=== PATIENT | male | born 1990 | race Caucasian/White ===

== ENCOUNTER 2018-06-22 21:57 | Emergency (ER) | payer BC ==
[2018-06-22 22:05] VITALS: BP 136/80; PULSE 62; TEMP 97.4; BMI 27.2
--- NOTE | 2018-06-22 22:05 | PDOC ---
History of Present Illness - General Chief Complaint: Syncope/Near Syncope Stated Complaint: SYNCOPE Time Seen by Provider: 06/22/18 22:05 History Source: Patient, EMS Exam Limitations: No Limitations - History of Present Illness Initial Comments: 06/22/18 22:12 28 year old male with PMH asthma BIBA to ED for syncopal episode just [employer]. PT stated he was sitting on the toilet, defecating when he felt lower abdominal pain, then felt lightheaded and passed out. This prompted pt to call EMS. While sitting on the stretcher, pt had another syncopal episode. Pt was given normal saline bolus 1000 cc en route to ED. Pt denied chest pain, shortness of breath, back pain. Pt denied sudden in the family, early heart disease in the family. Pt reported resolution of lightheadedness. EMS stated pts HR was as low as 44, with a rise to 62 with fluid bolus. Allergies: NKDA Past History - Past Medical History Allergies/Adverse Reactions: Allergies Allergy/AdvReac Type Severity Reaction Status Date / Time shrimp Allergy Severe Verified 06/22/18 22:43 Penicillins Allergy Unknown Verified 06/22/18 22:40 Home Medications: Ambulatory Orders Albuterol Sulfate Inhaler - [Ventolin Hfa Inhaler -] 2 inh PO Q6H PRN 06/22/18 Asthma: Yes COPD: No - Suicide/Smoking/Psychosocial Hx Smoking History: Never smoked Have you smoked in the past 12 months: No Hx Alcohol Use: No Drug/Substance Use Hx: No Substance Use Type: None Review of Systems - Review of Systems Able to Perform ROS?: Yes Comments:: 06/22/18 22:14 General: denied fever, chills, generalized weakness. HEENT: denied sore throat, rhinorrhea, ear pain. Heart: admitted to syncope. denied chest pain, palpitations. Respiratory: denied shortness of breath, cough, sputum production, hemoptysis. Abdomen: admitted to abdominal pain. denied nausea, vomiting, diarrhea, constipation, blood in stool. : denied dysuria, increased urinary frequency, hematuria, urinary incontinence , flank pain. Back: denied back pain. Musculoskeletal: denied joint pain, muscle pain, joint swelling. Neurological: denied headache, dizziness, numbness, tingling, weakness. Skin: denied rash, laceration, abrasion. *Physical Exam - Vital Signs Last Vital Signs Temp Pulse Resp BP Pulse Ox 97.4 F L 62 18 136/80 93 L 06/22/18 21:58 06/22/18 21:58 06/22/18 21:58 06/22/18 21:58 06/22/18 21:58 - Physical Exam Comments: 06/22/18 22:15 Constitutional: Well-nourished, Well-developed, appearing stated age. HEENT: head is normocephalic, atraumatic. EOMI. PERRLA. Neck: supple. Full ROM. Heart: regular rhythm. no murmurs, rubs or gallops. Lungs: clear to auscultation bilaterally. no crackles, rhonchi or wheezing. no stridor. Abdomen: soft, nontender. normal bowel sounds. no rebound, guarding, masses. Extremities: peripheral pulses intact. no lower extremity edema. Neurological: CN 2-12 grossly intact. moves all four extremities. Psych: awake, alert, oriented x3. follows commands. answers questions appropriately. ED Treatment Course - LABORATORY CBC & Chemistry Diagram: 06/22/18 22:40 06/22/18 22:40 Medical Decision Making - Medical Decision Making 06/22/18 22:15 28 year old male with above PMH BIBA to ED for syncopal episodes s/p defecating. Initial Vital Signs Temp Pulse Resp BP Pulse Ox 97.4 F L 62 18 136/80 93 L 06/22/18 21:58 06/22/18 21:58 06/22/18 21:58 06/22/18 21:58 06/22/18 21:58 Afebrile. Borderline bradycardia. No tachypnea. Mild hypertension. No hypotension. No hypoxia on room air. Labs ordered: BGM, CBC, CMP Imaging ordered: none Medications ordered: none EKG performed at 2207: rate 61, regular rhythm, normal axis, normal intervals, no delta wave, no prolonged QT, no acute ST changes. 06/22/18 22:56 CBC WBC 9.0 K/mm3 (4.0-10.0) 06/22/18 22:40 RBC 4.88 M/mm3 (4.00-5.60) 06/22/18 22:40 Hgb 14.8 GM/dL (11.7-16.9) 06/22/18 22:40 Hct 43.2 % (35.4-49) 06/22/18 22:40 MCV 88.6 fl (80-96) 06/22/18 22:40 MCH 30.3 pg (25.7-33.7) 06/22/18 22:40 MCHC 34.2 g/dl (32.0-35.9) 06/22/18 22:40 RDW 12.3 % (11.9-15.9) 06/22/18 22:40 Plt Count 143 K/MM3 (134-434) 06/22/18 22:40 MPV 9.4 fl (7.5-11.1) 06/22/18 22:40 Absolute Neuts (auto) 6.0 K/mm3 (1.5-8.0) 06/22/18 22:40 Neutrophils % 66.7 % (42.8-82.8) 06/22/18 22:40 Lymphocytes % 23.2 % (8-40) 06/22/18 22:40 Monocytes % 6.9 % (3.8-10.2) 06/22/18 22:40 Eosinophils % 2.8 % (0-4.5) 06/22/18 22:40 Basophils % 0.4 % (0-2.0) 06/22/18 22:40 Nucleated RBC % 0 % (0-0) 06/22/18 22:40 No leukocytosis. No anemia. 06/22/18 23:20 CMP Sodium 138 mmol/L (136-145) 06/22/18 22:40 Potassium 4.1 mmol/L (3.5-5.1) 06/22/18 22:40 Chloride 108 mmol/L (98-107) H 06/22/18 22:40 Carbon Dioxide 25 mmol/L (21-32) 06/22/18 22:40 Anion Gap 5 MMOL/L (8-16) L 06/22/18 22:40 BUN 20 mg/dL (7-18) H 06/22/18 22:40 Creatinine 0.9 mg/dL (0.55-1.3) 06/22/18 22:40 Est GFR (CKD-EPI)AfAm 135.19 06/22/18 22:40 Est GFR (CKD-EPI)NonAf 116.64 06/22/18 22:40 Random Glucose 102 mg/dL (74-106) 06/22/18 22:40 Calcium 8.5 mg/dL (8.5-10.1) 06/22/18 22:40 Total Bilirubin 0.3 mg/dL (0.2-1) 06/22/18 22:40 AST 19 U/L (15-37) 06/22/18 22:40 ALT 33 U/L (13-61) 06/22/18 22:40 Alkaline Phosphatase 77 U/L (45-117) 06/22/18 22:40 Total Protein 6.6 g/dl (6.4-8.2) 06/22/18 22:40 Albumin 3.8 g/dl (3.4-5.0) 06/22/18 22:40 No electrolyte abnormalities. No PARAG. No transaminitis. Pt informed of results. Pt reported improvement of symptoms. Pt discharged. *DC/Admit/Observation/Transfer Diagnosis at time of Disposition: Syncope - Discharge Dispostion Disposition: HOME Condition at time of disposition: Improved - Referrals - Patient Instructions Printed Discharge Instructions: DI for Syncope in Adults (Fainting) Additional Instructions: You were seen today for passing out (syncope). Likely this was from having a bowel movement (vasovagal syncope). Your lab work was normal. Your EKG was normal. Follow up with your primary care doctor within 2-3 days. Your care is not complete until you follow up. Bring all paperwork given to you to your appointment. Return to the Emergency Department for chest pain, shortness of breath, lightheadedness like you may pass out, passing, out, severe back pain, severe abdominal pain, fever or any other new, worsening or concerning symptoms. - Post Discharge Activity Forms/Work/School Notes: Back to Work
[2018-06-22 22:52] LABS: BASO % 0.4 % (0-2.0); EOS % 2.8 % (0-4.5); HEMATOCRIT 43.2 % (35.4-49); HEMOGLOBIN 14.8 GM/dL (11.7-16.9); LYMPH % 23.2 % (8-40); MCH 30.3 pg (25.7-33.7); MCHC 34.2 g/dl (32.0-35.9); MEAN CELL VOLUME 88.6 fl (80-96); MEAN PLT VOLUME 9.4 fl (7.5-11.1); MONO % 6.9 % (3.8-10.2); NEUT % 66.7 % (42.8-82.8); PLATELET COUNT 143 K/MM3 (134-434); RBC 4.88 M/mm3 (4.00-5.60); RDW 12.3 % (11.9-15.9)
[2018-06-22 23:19] LABS: ALBUMIN 3.8 g/dl (3.4-5.0); BILIRUBIN,TOTAL 0.3 mg/dL (0.2-1); CALCIUM 8.5 mg/dL (8.5-10.1); CREATININE 0.9 mg/dL (0.55-1.3); POTASSIUM 4.1 mmol/L (3.5-5.1); TOT PROT 6.6 g/dl (6.4-8.2)
--- NOTE | 2018-06-23 02:02 | PDOC ---
Documentation entered by Damaris Garcia SCRIBE, acting as scribe for Shahrzad Mccoy MD. Shahrzad Mccoy MD: This documentation has been prepared by the Radha ledesma Xhesika, SCRIBE, under my direction and personally reviewed by me in its entirety. I confirm that the documentation accurately reflects all work, treatment, procedures, and medical decision making performed by me. Attending Attestation - Resident Resident Name: Mony Welsh - ED Attending Attestation I have performed the following: I have examined & evaluated the patient, The case was reviewed & discussed with the resident, I agree w/resident's findings & plan, Exceptions are as noted - HPI HPI: 06/22/18 22:35 28 yo male has seated onthe toilet when he had a fainting episode. Then he called 911 06/22/18 22:35 The patient is a 28 year old male with a significant past medical history of asthma who presents to our ED on BIBA with syncopal episodes. The patient states he was sitting on the toilet when he felt lower abdominal pain, light headed and passed out. Patient states he woke up and called EMS, however, when patient was in the ambulance he had another syncopal episode, his HR was in the 40s and patient was given normal saline bolus 1000 cc by EMS. Patient denies any heart disease in the family. Patient does not have any complaints at this time. The patient denies chest pain, shortness of breath or dizziness. The patient denies fever, chills, nausea, diarrhea or constipation. The patient denies dysuria, frequency, urgency or hematuria. Allergy: NKDA. shrimp. Surgical History: None reported Social History: None reported - Physicial Exam PE: 06/22/18 23:45 wnwd 28 yo male has syncopal episode while on the toilet head ncat neck supple,no jvd,no bruits lungs cta b/l, no murmurs,no rubs,no gallop cvs [id number] abd nontender extremities no deformities,no rashes skin warm and dry neuro axox3,motor strength 5/5, b/l, no slurred speech,no facial droop, no drift, no ataxia psych appropriate - Medical Decision Making 05/14/19 02:00 imp vasovagel episode /discharged home
--- NOTE | 2018-06-23 12:08 | EKG ---
Test Reason : Blood Pressure : / mmHG Vent. Rate : 061 BPM Atrial Rate : 061 BPM P-R Int : 146 ms QRS Dur : 098 ms QT Int : 398 ms P-R-T Axes : 049 059 014 degrees QTc Int : 400 ms NORMAL SINUS RHYTHM NORMAL ECG NO PREVIOUS ECGS AVAILABLE Confirmed by MD Fabian, García ([id number]) on 06/23/2018 12:08:05 PM Referred By: Confirmed By:García Peralta MD
== END 2018-06-23 00:25 | disposition home or self-care (01) ==
LOC: JER 21:57
DX: R55 Syncope and collapse (principal)
CPT/HCPCS: 36415; 80053; 85025; 93005; 93010; 99282-25

== ENCOUNTER 2021-09-08 17:25 | Emergency (ER) | payer BC ==
[2021-09-08 17:39] VITALS: BP 139/87; PULSE 73; RESP 18; TEMP 98.3; BMI 30.2
[2021-09-08 20:39] LABS: URINE APPEARANCE CLEAR; URINE BILIRUBIN NEGATIVE (NEGATIVE); URINE COLOR YELLOW; URINE GLUCOSE (UA) NEGATIVE (NEGATIVE); URINE KETONE TRACE (NEGATIVE); URINE LEUK ESTERASE NEGATIVE (NEGATIVE); URINE NITRITE NEGATIVE (NEGATIVE); URINE PROTEIN NEGATIVE (NEGATIVE); URINE UROBILINOGEN 0.2 mg/dL (0.2-1.0)
[2021-09-08 21:01] LABS: SYPHILIS W/ RPR CONF NON-REACTIVE (NONREACTIVE)
[2021-09-08 21:30] LABS: HIV INTERPRETATION NEGATIVE (NEGATIVE)
== END 2021-09-08 21:02 | disposition home or self-care (01) ==
LOC: JER 17:25
DX: N48.1 Balanitis (principal)
CPT/HCPCS: 36415; 76870-TC; 81003; 86704; 86780; 86803; 87340; 87389; 87491; 87517; 87591; 99284-25

== ENCOUNTER 2021-12-19 04:20 | Day surgery (SDC) | payer BC ==
[2021-12-17 10:30] VITALS: BMI 29.9
[2021-12-19] MEDS ORDERED: PROPOFOL 20 ML ONE ×2 (14:56→15:35)
[2021-12-19] MEDS ORDERED: MIDAZOLAM HCL 2 MG/2 ML SINGLE DOSE VIAL ONE (14:56)
[2021-12-19] MEDS ORDERED: LIDOCAINE HCL/PF 2% SDV 5ML VIAL ONE (14:56)
[2021-12-19] MEDS ORDERED: BUPIVACAINE HCL/PF 0.25% (2.5MG/ML) 10 ML VIAL ONE (14:58)
[2021-12-19] MEDS ORDERED: BUPIVACAINE HCL/PF 0.5% (5MG/ML) 10 ML VIAL ONE (15:16)
[2021-12-19] MEDS ORDERED: ceFAZolin SODIUM 1 GM VIAL ONE (15:25)
[2021-12-19] MEDS ORDERED: BACITRACIN 15 GM TUBE TOPICAL OINTMENT ONE ×2 (15:25→15:40)
[2021-12-19] MEDS ORDERED: ceFAZolin SODIUM 1 GM VIAL IVPB ONE (15:28)
[2021-12-19] MEDS ORDERED: BUPIVACAINE HCL/PF 0.5% (5 MG/ML) 30 ML VIAL IJ ONE ×2 (15:29)
[2021-12-19 17:31] VITALS: RESP 20; TEMP 97.7
[2021-12-19 17:47] VITALS: BP 124/65; PULSE 68
[2021-12-19] MEDS ORDERED: oxyCODONE HCL 5 MG TABLET PO PRN (18:13)
[2021-12-19] MEDS ORDERED: ONDANSETRON 4 MG/2 ML VIAL IVPUSH PRN (18:13)
[2021-12-19] MEDS ORDERED: LACTATED RINGERS SOLUTION 1,000 ML IV SCH (18:15)
== END 2021-12-19 17:43 | disposition home or self-care (01) ==
LOC: JASU-SURG 04:20
PROVIDERS: ATTEND Urology
PROC: 0VTTXZZ Resection of Prepuce, External Approach (ICD-10-PCS; principal; 2021-12-19 15:30)
DX: N47.1 Phimosis (principal)
CPT/HCPCS: 88304-TC; 94760